=== PATIENT | male | born 1980 | race Caucasian/White ===

== ENCOUNTER 2019-12-17 17:40 | Emergency (ER) | payer OTHER ==
[2019-12-17] MEDS ORDERED: Fentanyl 100 MCG/2 ML VIAL ONE ×2 (19:08→20:34)
--- NOTE | 2019-12-17 19:28 | CT ---
CT THORACIC SPINE WITHOUT CONTRAST: 12/17/19 COMPARISON: None. HISTORY: Back pain after fall. TECHNIQUE: Multiple contiguous axial images were obtained in a CT of the thoracic spine without contrast. Sagit silvina and coronal reformats were performed. FINDINGS: The vertebral bodies demonstrate normal height and alignment without acute fracture or subluxation. T he intervertebral discs are narrowed in the lower thoracic spine with small surrounding osteophytes. The prevertebral and paraspinal soft tissues are unremarkable. The visualized posterior ribs are unre markable. IMPRESSION: Mild degenerative changes of the thoracic spine without acute osseous abnormality. POS: [facility]
[2019-12-17] MEDS ORDERED: Naloxone HCl 0.4 mg/ml Vial ONE (20:49)
== END 2019-12-17 21:39 | disposition home or self-care (01) ==
LOC: ERS 17:40
DX: S20.222A Contusion of left back wall of thorax, initial encounter (principal); F17.220 Nicotine dependence, chewing tobacco, uncomplicated; I10 Essential (primary) hypertension; Z79.899 Other long term (current) drug therapy; W17.89XA Other fall from one level to another, initial encounter
CPT/HCPCS: 72128; 93005; 96374; 96375; 96376; J2310; J3010